=== PATIENT | male | born 2000 | race Caucasian/White ===

== ENCOUNTER 2020-11-03 12:25 | Emergency (ER) | payer OTHER ==
[~2020-11-03] VITALS: Ht 177.8 cm; Wt 294.0 kg
[2020-11-03] MEDS: IPRATRPIUM/ALBUTEROL 0.5/2.5MG 3 ML NEBU. NEB ONE (14:02)
--- NOTE | 2020-11-03 14:03 | RAD ---
INDICATION: Reason: shob / Spl. Instructions: / History: COMPARISON: None. FINDINGS: Single view of chest obtained. No focal airspace consolidation. Cardiac silhouette near upper limits of normal in size but likely exaggerated by portable technique. No gross osseous destructive lesion IMPRESSION: * No focal airspace consolidation or edema. Electronically signed by: Maik Gonzalez MD (11/03/2020 2:01 PM) [id number]
--- NOTE | 2020-11-03 14:52 | PHYS DOC ---
Past History Past Medical History: Asthma Past Surgical History: No Surgical History Alcohol Use: None Adult General Chief Complaint Chief Complaint: SHORTNESS OF BREATH HPI HPI Patient is a 20-year-old male presenting for shortness of breath. Reports onset was approximately 4 days ago. Patient has been utilizing home albuterol inhaler but unsure if this is up-to-date or , physical exertion and being outside make worse. Denies being in any pain. Just describes increased shortness of breath, inability to get a full deep breath at times, and wheezing. Timing of symptoms has been constant and worsening since onset. Admits he has history of asthma for which he rarely utilizes rescue albuterol inhaler only, has had exace rbations in the past but is never required hospitalization and/or intubation. Reports typical triggers are usually changes in season, does admit to recent URI symptoms such as rhinorrhea and postnasal drip without any known sick contacts or recent long distance travel. He has been afebrile, no other medical issues, no history of blood clots, no productive cough, he has had x2 Moderna COVID-19 vaccines, denies smoking alcohol or other illicit drug use Review of Systems Review of Systems Fourteen body systems of review of systems have been reviewed. See HPI for pertinent positives and negative responses, other mcgarry all other systems are negative, non-pertinent or non-contributory Current Medications Current Medications Current Medications Medications (Trade) Dose Ordered Sig/Yenny Start Time Stop Time Status Last Admin Dose Admin Albuterol Sulfate (Ventolin) 10 mg 1X ONCE 11/03/20 14:30 11/03/20 14:39 DC Albuterol/ Ipratropium (Duoneb) 3 ml 1X ONCE 11/03/20 13:45 11/03/20 13:47 DC 11/03/20 14:02 3 ML Prednisone (Prednisone) 60 mg 1X ONCE 11/03/20 14:30 11/03/20 14:39 DC Allergies Allergies Allergies Coded Allergies Type Severity Reaction Last Updated Verified No Known Drug Allergies 11/03/20 No Physical Exam Physical Exam Constitutional: Well developed, well nourished, no acute distress, non-toxic appearance. HENT: Normocephalic, atraumatic, bilateral external ears normal, oropharynx moist, no oral exudates, nose normal. Eyes: PERRLA, EOMI, conjunctiva normal, no discharge. Neck: Normal range of motion, no tenderness, supple, no stridor. Cardiovascular: Heart rate tachycardic, sinus rhythm, no murmurs rubs or gallops Lungs & Thorax: No signs of respiratory failure or distress, no accessory muscle use or increased work of breathing, there is global wheezing most prominent during the end expiratory phases of respiration Abdomen: Bowel sounds normal, soft, no tenderness, no masses, no pulsatile masses. Nonsurgical abdomen, no peritoneal signs Skin: Warm, dry, no erythema, no rash. Back: No tenderness, no CVA tenderness. Extremities: No tenderness, no cyanosis, no clubbing, ROM intact, no edema. Neurologic: Alert and oriented X 3, grossly normal motor & sensory function, no focal deficits noted. Psychologic: Affect normal, judgement normal, mood normal. Current Patient Data Vital Signs Vital Signs Date Time Temp Pulse Resp B/P (MAP) Pulse Ox O2 Delivery O2 Flow Rate FiO2 11/03/20 14:02 98 Room Air 11/03/20 12:25 98.4 128 24 157/98 (117) Lab Results Current Medications Medications (Trade) Dose Ordered Sig/Yenny Route PRN Reason Start Time Stop Time Status Last Admin Dose Admin Albuterol/ Ipratropium (Duoneb) 3 ml 1X ONCE NEB 11/03/20 13:45 11/03/20 13:47 DC 11/03/20 14:02 Prednisone (Prednisone) 60 mg 1X ONCE PO 11/03/20 14:30 11/03/20 14:39 DC 11/03/20 15:03 Albuterol Sulfate (Ventolin) 10 mg 1X ONCE CONT NEB 11/03/20 14:30 11/03/20 14:39 DC 11/03/20 15:17 EKG EKG EKG ordered and interpreted by myself at 1400 hrs. as sinus tachycardia at 101 bpm, unremarkable intervals, no axis deviation, no acute ischemic findings, no STEMI Radiology/Procedures Radiology/Procedures INDICATION: Reason: shob / Spl. Instructions: / History: COMPARISON: None. FINDINGS: Single view of chest obtained. No focal airspace consolidation. Cardiac silhouette near upper limits of normal in size but likely exaggerated by portable technique. No gross osseous destructive lesion IMPRESSION: * No focal airspace consolidation or edema. Electronically signed by: Maik Gonzalez MD (11/03/2020 2:01 PM) [id number] Heart Score C/O Chest Pain: No HEART Score for Chest Pain: HEART Score for Chest Pain Response (Comments) Value History Moderately Suspicious 1 ECG Normal 0 Age < 45 0 Risk Factors No Risk Factors 0 Total 1 Risk Factors: Risk Factors: DM, Current or recent (<one month) smoker, HTN, HLP, family history of CAD, obesity. Risk Scores: Risk Factors: DM, Current or recent (<one month) smoker, HTN, HLP, family history of CAD, obesity. Course & Med Decision Making Course & Med Decision Making ABCs unremarkable. I disclosed entirety of ER findings and discussed most likely diagnosis of acute asthma exacerbation. Patient symptoms improved with ER intervention that included steroids and nebulizer treatments. Patient was wheezing, symptoms of air hunger and tachycardia improved. With that said, I did disclose this might be an acute presentation of more concerning pathology such as underlying cardiovascular disease versus pulmonary embolism versus other; however, given significant improvement in symptoms with ER intervention and low risk for other diagnoses patient deferred further diagnostic work-up. As such, I stressed need for close outpatient follow-up to review today's ER visit. Patient amenable to receiving steroid burst and requesting new albuterol inhaler prescriptions today. In addition, I did disclose despite being vaccinat ed for COVID-19 given recent URI symptoms, it is not impossible he could be infected again and so, patient was tested for COVID-19 prior to ER departure. Strict return precautions were also discussed at length with good understanding by patient. Patient voiced understanding and agreement with the plan. Patient knows to come back for repeat evaluation if concerning signs or symptoms present prior to outpatient follow-up. Hemodynamically stable, ambulatory and well- appearing at time of disposition. Dragon Disclaimer Dragon Disclaimer This electronic medical record was generated, in whole or in part, using a voice recognition dictation system. Departure Departure: Impression: Primary Impression: Asthma exacerbation Additional Impressions: Tachycardia Person under investigation for COVID-19 Disposition: HOME / SELF CARE / HOMELESS Condition: IMPROVED Referrals: [facility] (PCP) Patient Instructions: Asthma Attacks, Prevention, Asthma, Adult Additional Instructions: You were seen for an asthma exacerbation. Your exacerbation was likely caused by a change in weather/seasonal allergies. With that said, as disclosed, there is concern for potential Covid infection and so you were checked for this today. You should be checking your peak flows daily and taking all of your controller and rescue inhalers as previously prescribed. Any new medications today, please take those as prescribed as well. It may take a few days for the steroids to begin to work, but use albuterol as needed for the next few days to help with symptoms. Your chest x-ray was normal. We tested you for COVID-19 but this test does not come back for 1 to 2 days. In the meantime you need to quarantine yourself at home away from all other individuals, especially those who are elderly or have any other chronic health issues or an immunocompromised status. You should return to the ED if you develop worsening cough, shortness of breath, chest pain, or any other new or concerning symptoms. Alternate Tylenol and ibuprofen as needed for body aches and pain. If your test does come back positive you need to quarantine yourself for 10 days until symptom-free. You should make sure to drink plenty of fluids and get plenty of rest. Return to the ED if you develop worsening cough, shortness of breath, fever > 101, chest pain, or any other new or concerning symptoms. You need to follow up with your primary care doctor as soon as possible as a severe asthma exacerbation can be fatal. Scripts Albuterol Sulfate (PROAIR HFA INHALER) 8.5 Gm Hfa.aer.ad 2 PUFF IH PRN Q4-6HRS PRN for wheezing for 21 Days, #1 INHALER 0 Refills Prov: JESSE GALDAMEZ DO 11/03/20 Prednisone (PREDNISONE) 50 Mg Tablet 1 TAB PO DAILY for asthma, #5 TAB Prov: JESSE GALDAMEZ DO 11/03/20 Problem Qualifiers JESSE GALDAMEZ DO Nov 03, 2020 14:51
[2020-11-03] MEDS: predniSONE 20 MG TABLET PO ONE (15:03)
[2020-11-03] MEDS: ALBUTEROL SULFATE 2.5 MG/3 ML NEBU. CONT NEB ONE (15:17)
[2020-11-03] MEDS ORDERED: PRED50TA PO (16:34)
[2020-11-03] MEDS ORDERED: ALBU2.5V8 IH (16:34)
[2020-11-03 16:45] VITALS: BP 156/80
--- NOTE | 2020-11-03 20:21 | EKG ---
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
== END 2020-11-03 16:45 | disposition home or self-care (01) ==
LOC: ER 12:25
DX: U07.1 COVID-19 (principal); J45.901 Unspecified asthma with (acute) exacerbation; R00.0 Tachycardia, unspecified
CPT/HCPCS: 71045; 93005; 94640; 99285; C9803; J7512; J7613; U0003